=== PATIENT | male | born 1990 | race Caucasian/White ===

== ENCOUNTER 2016-04-20 22:38 | Emergency (ER) | payer OTHER ==
[~2016-04-20] VITALS: Ht 177.8 cm; Wt 80.0 kg
[~2016-04-20 22:38] MED LIST: ONDA4TAB46 PO; [UNRECOGNIZED DRUG - CODE]
[2016-04-20 22:40] VITALS: TEMP 36.4; Ht 177.8 cm; Wt 80.0 kg
[2016-04-21] MEDS ORDERED: NORCO 5/325MG HOME PACK PO ONE (00:30)
[2016-04-21] MEDS ORDERED: HYDR-5688 PO (00:31)
--- NOTE | 2016-04-21 01:10 | EMERGENCY ROOM VISIT NOTE ---
ED Visit Note First contact with patient: 22:55 CHIEF COMPLAINT: knee pain HISTORY OF PRESENT ILLNESS: This 25-year-old male patient presents to the emergency department with left knee for the past 2-3 days. The patient does not recall a distinct injury or trauma. He is currently undergoing physical therapy for a left foot injury, and may have injured himself at physical therapy. 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 The patient denies any other injuries besides their knee. The patient primarily has discomfort in the posterior knee. They rate the pain as dull and 5/10. The patient states they are not comfortably able to walk on it. No numbness or tingling. No previous injuries to this knee. No ankle, foot or hip pain. REVIEW OF SYSTEMS: A 6 system review of systems was completed with positives and pertinent negatives listed in the HPI. ALLERGIES: No known allergies MEDICATIONS: No chronic medications PMH: Otherwise healthy SOCIAL HISTORY: Employed and lives locally PHYSICAL EXAM: Vital Signs: Reviewed Nurse's notes, vital signs stable. GENERAL : White male, no acute distress, but appears in pain, well-developed, well- nourished. MENTAL STATUS: Alert, oriented to person place and time, and cooperative. MUSCULOSKELETAL: The left knee is not swollen. There is no ecchymosis. There is no joint effusion present. The patient is tender posteriorly. There is no joint line tenderness. The patella does not subluxate. Range of motion is normal. Strength of the quads and hamstrings is 5/5. Alessio' s is negative. Yang's and Anterior Drawer tests are negative. There is no laxity with varus and valgus stressing. The foot and toes are warm and well- perfused. Dorsalis pedis pulse 2+. Sensation to pain and light touch is intact. Capillary refill less than 2 seconds. EMERGENCY DEPARTMENT COURSE: I examined the patient. The patient appears to have posterior left knee pain without distinct injury. Because of his symptoms and recent travel history and ultrasound was performed and read by [facility] as showing no acute DVT. Plain films were also gathered, and do not show obvious fracture with official radiology read pending. Overall the patient does appear stable for discharge home. He was placed in a knee immobilizer and given crutches. He will be given a short course of Vicodin. I did recommend the patient follow with orthopedics if his symptoms persist over the next few days. The patient was very pleased with this plan of voice understanding. He was otherwise invited back to the ER with any new, worsening, or concerning symptoms. Problem List Surgical Problems: (1) History of appendectomy Status: Resolved (2) History of appendectomy Status: Resolved Current/Historical Medications Scheduled PRN Hydrocodone/Acetaminophen 5MG/325MG ([place] 5MG/325MG), 1 TABLET PO Q6 PRN for Pain Allergies Coded Allergies: No Known Allergies (Unverified , 03/06/16) Vital Signs Date Time Temp Pulse Resp B/P Pulse Ox O2 Delivery O2 Flow Rate FiO2 04/21/16 00:16 76 18 132/66 98 Room Air 04/20/16 22:40 36.4 108 18 144/86 98 Room Air Departure Information Impression Primary Impression: Posterior left knee pain Dispostion Home / Self-Care Condition GOOD Prescriptions Hydrocodone/Acetaminophen 5MG/325MG ([place] 5MG/325MG) Tab 1 TABLET PO Q6 Y for Pain, #12 TAB For Initial Treatment Prov: Samy Davis PA-C 04/21/16 Referrals Oniel Herrera MD Forms HOME CARE DOCUMENTATION FORM, IMPORTANT VISIT INFORMATION Patient Instructions [facility] Additional Instructions You were seen and evaluated today on an emergency basis only. This is not a substitute for, or an effort to provide, complete comprehensive medical care. It is not possible to recognize and treat all injuries or illnesses in a single emergency department visit. For this reason it is recommended that you followup with [facility] , Dr. Herrera's office, if you have ongoing or persistent symptoms. For baseline pain relief you may alternate ibuprofen and acetaminophen every 4 hours for pain control. Take 600 mg ibuprofen (Advil) and then 4 hours later take 1000 mg acetaminophen (Tylenol). Do not take more than 3000 mg acetaminophen in a single day. [place] (hydrocodone/acetaminophen) 5/325 mg every 6 hours as needed for worsening breakthrough pain. Do not drink or drive on [place]. This medication will likely make you tired. Do not take [place] and Tylenol at the same time as both contain acetaminophen. [place] may cause constipation. You may wish to take an alne-tve-yodsdwy stool softener like Colace if this occurs. Use your knee immobilizer and crutches for the next 4-5 days. If you have persistent symptoms please follow with orthopedics. You are welcome to return to the emergency department anytime with new, worsening, or concerning symptoms.
[2016-04-21 01:24] VITALS: BP 145/73; PULSE 88; O2SAT 96
--- NOTE | 2016-04-21 06:40 | DIAGNOSTIC IMAGING REPORT ---
LEFT KNEE 3 VIEWS CLINICAL HISTORY: Left posterior knee pain/swelling. COMPARISON: None. DISCUSSION: No fractures or dislocations are visualized. There are no erosive or destructive changes. There is no conventional radiographic evidence of a significant joint effusion IMPRESSION: No fractures, dislocations, or erosive changes are visualized Electronically signed by: Harrison Martines M.D. 04/21/2016 6:38 AM Dictated Date/Time: 04/21/2016 6:38 AM
--- NOTE | 2016-04-21 06:40 | DIAGNOSTIC IMAGING REPORT ---
ULTRASOUND LEFT VENOUS DOPP LOWER EXT UNILAT CLINICAL HISTORY: Left posterior knee pain/swelling. COMPARISON STUDY: No previous studies for comparison. FINDINGS: Real-time and color flow Doppler imaging were performed. Flow was seen within the femoral, popliteal and calf veins with no intraluminal thrombus demonstrated. The saphenous vein is patent. IMPRESSION: No evidence of left lower extremity DVT. Electronically signed by: Harrison Martines M.D. 04/21/2016 6:38 AM Dictated Date/Time: 04/21/2016 6:38 AM
== END 2016-04-21 01:26 | disposition home or self-care (01) ==
LOC: C.EDB 22:39
DX: M25.562 Pain in left knee (principal)